=== PATIENT | female | born 1985 | race Two or more races ===

== ENCOUNTER 2022-05-15 13:07 | Emergency (ER) | payer MEDICAID ==
[~2022-05-15] VITALS: Ht 170.2 cm; Wt 85.0 kg
[2022-05-15] MEDS ORDERED: ACETAMINOPHEN 325 MG TAB PO ONE ×2 (14:30→21:15)
[2022-05-15 14:46] LABS: Eosinophils # (auto) 0.1 10 ^3/uL (0-0.8); Mean Corpuscular Hemoglobin 22.6 pg (28.0-32.0); Neutrophils # (auto) 5.1 10 ^3/uL (1.6-8.6); Red Blood Cells 2.39 10^6/uL (4.0-5.20)
[2022-05-15 14:48] LABS: Basophils # (auto) 0.1 10 ^3/uL (0-0.2); Basophils % (auto) 0.8 % (0.0-2.0); Eosinophils % (auto) 0.7 % (0.0-7.0); Hematocrit 17.5 % (36.0-46.0); Lymphocytes # (auto) 1.1 10 ^3/uL (0.4-5.4); Lymphocytes % (auto) 15.7 % (10.0-50.0); Mean Corpuscular Hgb Conc. 30.9 g/dL (32.0-36.0); Mean Corpuscular Volume 73.3 fL (80.0-100.0); Monocytes # (auto) 0.6 10 ^3/uL (0-1.3); Monocytes % (auto) 8.6 % (0.0-12.0); Neutrophils % (auto) 74.2 % (37.0-80.0); Nucleated Red Blood Cells % 0.4 %; Red Cell Distribution Width 22.4 % (11.8-14.3); White Blood Cell 6.9 10^3/uL (4.4-10.8)
[2022-05-15 14:53] LABS: Hemoglobin 5.4 g/dL (12.2-16.2)
[2022-05-15 15:03] LABS: INR 0.99 (0.9-1.15); Partial Thromboplastin Time 20.4 sec (24.6-33.4)
[2022-05-15 15:06] LABS: Albumin 2.7 g/dL (3.4-5.0); Calcium 8.1 mg/dL (8.5-10.1); Potassium 4.4 mmol/L (3.5-5.1)
[2022-05-15 15:08] LABS: BUN/Creatinine Ratio 17.5; Bilirubin, Total 0.4 mg/dL (0.2-1.0); Total Protein 4.6 g/dL (6.4-8.2)
[2022-05-16] VITALS (7 sets, daily range): BP systolic 111–149; BP diastolic 68–110
[2022-05-16] MEDS ORDERED: HYDROcodone-ACET 5/325MG TAB PO ONE ×2 (00:15→13:30)
[2022-05-16] MEDS ORDERED: MORPHINE SULFATE INJ 2 MG/ml SYRG IV ONE ×2 (08:30→12:15)
[2022-05-16] MEDS ORDERED: SODIUM CHLORIDE 0.9% 1,000 ML IV ONE (10:00)
[2022-05-16 19:54] LABS: Hematocrit 25.6 % (36.0-46.0); Hemoglobin 8.1 g/dL (12.2-16.2)
== END 2022-05-16 23:45 | disposition home or self-care (01) ==
LOC: EDBD 13:07 → ER 13:09
DX: D64.9 Anemia, unspecified (principal); D25.9 Leiomyoma of uterus, unspecified; D68.61 Antiphospholipid syndrome; R42 Dizziness and giddiness; R55 Syncope and collapse; Z20.822 Contact with and (suspected) exposure to COVID-19
CPT/HCPCS: 36415; 36430; 71045; 76856; 80053; 83880; 84484; 85014; 85018; 85025; 85610; 85730; 86850; 86870; 86880; 86900; 86901; 86906; 86971; 87426; 93005; 96374; 99291; J2270; P9016; 86922